=== PATIENT | female | born 1950 | race Caucasian/White ===

== ENCOUNTER 2021-02-11 09:37 | Emergency (ER) | payer MEDICARE, SELFPAY ==
[2021-02-11 09:45] VITALS: BP 166/72; PULSE 82; RESP 18; TEMP 36.1; O2SAT 96; BMI 29.6
--- NOTE | 2021-02-11 09:52 | DI.RAD.S_ITS ---
PROCEDURE: XR WRIST RT MIN 3V INDICATIONS: Lost balance. Caught fall with hand, swelling and pain TECHNIQUE: 4 views of the wrist were acquired. COMPARISON: None. FINDINGS: Bones: Transverse fracture of the distal radius, which appears to extend into the distal radioulnar and radiocarpal articulations. Sclerosis is seen about the margins of the fracture line. Widening of the scapholunate interval. Contour irregularity of the ulnar styloid, which may reflect acute on chronic injury or callus formation. No suspicious bony lesions. Scaphoid view: Intact. Soft tissues: Edema about the fracture site. No suspicious soft tissue calcifications. IMPRESSION: 1. Transverse fracture of the distal radius as detailed above. 2. Acute on chronic injury of the ulnar styloid versus callus formation. Dictated by: Lv Kwon M.D. on 02/11/2021 at 10:13 Approved by: Lv Kwon M.D. on 02/11/2021 at 10:18
--- NOTE | 2021-02-11 10:20 | ED.UPPEXIN ---
HPI - Extremity Injury (Upper) General Chief Complaint: Extremity Injury, Upper Stated Complaint: Fell and hurt Right wrist Time Seen by Provider: 02/11/21 10:03 Source: patient Mode of arrival: Ambulatory Limitations: no limitations and language barrier History of Present Illness HPI narrative: Patient is a 71-year-old female with history of hypertension hyperlipidemia arthritis presents right wrist pain and injury. She states that she is getting out the vehicle last night when she. No numbness or tingling. She has significant arthritis in her right MCPs. Related Data Previous Rx's Medication Instructions Recorded hydrocodone 5 mg-acetaminophen 325 1 tab PO Q6H PRN #10 tab 02/11/21 mg tablet Allergies Allergy/AdvReac Type Severity Reaction Status Date / Time Penicillins Allergy Mild Verified 02/11/21 09:49 Review of Systems Review of Systems Narrative: GENERAL: Denies chills,fever HEENT: Denies throat pain RESPIRATORY: Denies dyspnea, cough, wheezing CARDIOVASCULAR: Denies chest pain, palpitations GASTROINTESTINAL: Denies nausea, vomiting MUSCULOSKELETAL: See HPI SKIN: No rash, no laceration, no pruritus NEUROLOGIC: Denies weakness, dizziness, headache, numbness 8 point review of systems is negative except for those stated above and HPI Patient History Social History Smoking Status: Never smoker Smoking Status: Never smoker Substance Use Type: does not use Exam Initial Vital Signs Initial Vital Signs: Vital Signs Temperature 96.9 F L 02/11/21 09:45 Pulse Rate 82 02/11/21 09:45 Respiratory Rate 18 02/11/21 09:45 Blood Pressure 166/72 H 02/11/21 09:45 Pulse Oximetry 96 02/11/21 09:45 GENERAL: Alert well-appearing 71-year-old female CARDIOVASCULAR: peripheral pulses in tact, cap refill <2 sec RESPIRATORY: No respiratory distress, speaks in full sentences without difficulty EXTREMITIES: Normal range of motion, no clubbing or edema. Neurovascularly intact Right wrist swelling with mild contusion distal radial pulse intact. MCPs are flexed patient says that her hand is normally flexed, there is no actual hand swelling or hand pain. Cap refill less than 2 seconds NEUROLOGICAL: Cranial nerves II through XII grossly intact. Normal gait and speech. SKIN: Warm, dry, no petechiae, no rashes or lesions. Procedures Orthopedic Splinting/Casting Injury #1: Side: right Upper Extremity Injury Location: wrist Upper Extremity Immobilizer: sling/shoulder immobilizer and sugar tong splint Post splinting neuro exam: intact Post splinting vascular exam: intact Course Orders Ordered: ED Orders 02/11/21 09:52 XR wrist RT min 3V Stat Vital Signs Vital signs: Vital Signs - 8 hr 02/11/21 09:45 02/11/21 11:08 Temperature 96.9 F L Pulse Rate 82 80 Respiratory Rate 18 18 Blood Pressure 166/72 H 160/70 H Pulse Oximetry 96 97 MDM - Extremity Injury (Upper) Imaging Data Extremity x-ray #1: Radiologist's Impression: PROCEDURE:? XR WRIST RT MIN 3V ? INDICATIONS:? Lost balance. Caught fall with hand, swelling and pain ? TECHNIQUE:? 4 views of the wrist were acquired.? ? COMPARISON:? None. ? FINDINGS:? ? Bones:? Transverse fracture of the distal radius, which appears to extend into the distal radioulnar and radiocarpal articulations.? Sclerosis is seen about the margins of the fracture line.? Widening of the scapholunate interval.? Contour irregularity of the ulnar styloid, which may reflect acute on chronic injury or callus formation.? No suspicious bony lesions.? ? Scaphoid view:? Intact. ? Soft tissues:? Edema about the fracture site.? No suspicious soft tissue calcifications.? ? ? IMPRESSION:? ? 1. Transverse fracture of the distal radius as detailed above.? 2. Acute on chronic injury of the ulnar styloid versus callus formation.? ? Dictated by: Lv Kwon M.D. on 02/11/2021 at 10:13 ? ? Approved by: Lv Kwon M.D. on 02/11/2021 at 10:18 ? Discharge Plan Departure Patient Disposition: Home Clinical Impression: Distal radial fracture Qualifiers: Encounter type: initial encounter Fracture type: closed Laterality: right Instructions: DI for Wrist Fracture Activity Restrictions/Additional Instructions: *You have been diagnosed with distal radius fracture/wrist fracture *What to do: Keep arm in splint at all times. Use sling as needed. This may or may not require surgery. Please follow-up with orthopedic. Ice 20 minutes at a time if needed. Keep elevated as much as possible *Continue to take medications as directed [place] 1 tablet every 6 hours if needed pain *Follow up with your primary care provider in 2-3 days Call orthopedics today to schedule follow-up appointment in about 1 week *Return to ER if you should have increasing pain swelling weakness number smell or any new, worsening or concerning symptoms CONTROLLED SUBSTANCE DISCHARGE (Narcotoic/benzodiazepine/Flexeril/Phenergan) 1. You have been prescribed narcotic medications, it does have acetaminophen/Tylenol/paracetamol in it, DO NOT TAKE MORE THAN 4,00mg in 24 hours of Tylenol. TRAMADOL DOES NOT CONTAIN TYLENOL 2. Please understand that we cannot provide further refills of narcotics, benzodiazepines or controlled substances through the ED and her pain management will need to be through your provider. 3. While on these medications you cannot drive or operate heavy machinery. 4. You cannot sign legal documents or perform any duties such as this. 5. As long as you're taking opiate pain medications he should also be taking a stool softener such as Colace, Dulcolax, MiraLAX or prune juice, to help avoid constipation. Prescriptions: New hydrocodone-acetaminophen 5-325 mg tablet 1 tab PO Q6H PRN (Reason: pain) Qty: 10 RF: 0 Referrals: [facility] [Provider Group]
[2021-02-11 11:08] VITALS: BP 160/70; PULSE 80; RESP 18; O2SAT 97
== END 2021-02-11 11:08 | disposition home or self-care (01) ==
PROVIDERS: Emergency Provider Emergency Medicine
DX: S52.501A Unspecified fracture of the lower end of right radius, initial encounter for closed fracture (principal); W19.XXXA Unspecified fall, initial encounter
CPT/HCPCS: 29125; 73110; 99282; 99283

== ENCOUNTER → 2021-02-14 08:43 | Outpatient (CLI) | payer MEDICARE, SELFPAY ==
--- NOTE | 2021-02-14 | DI.CT.S_ITS ---
PROCEDURE: CT UE RT WO CON INDICATIONS: Other fractures of lower end of right radius, init TECHNIQUE: Noncontrast 1 mm axial sections acquired through the carpal bones, with coronal and sagittal reformats. COMPARISON: Reference is made to the right wrist radiographs dated February 11, 2021. FINDINGS: Image quality: Excellent. Bones: Comminuted fracture of the distal radius with extension to the radiocarpal and radioulnar articulations. Widening of the scapholunate interval. 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 Acute on chronic fracture of the ulnar styloid. Soft tissues: Soft tissue swelling about the fracture sites. IMPRESSION: 1. Comminuted fracture of the distal radius as detailed above. 2. Acute on chronic fracture of the ulnar styloid. Dictated by: Lv Kwon M.D. on 02/14/2021 at 10:01 Approved by: Lv Kwon M.D. on 02/14/2021 at 10:06
== END ==
PROVIDERS: Referring Provider Physician Assistant Medical; Visit Provider Physician Assistant Medical
DX: S52.591A Other fractures of lower end of right radius, initial encounter for closed fracture (principal); S52.611A Displaced fracture of right ulna styloid process, initial encounter for closed fracture
CPT/HCPCS: 73200

== ENCOUNTER → 2021-02-20 10:46 | Outpatient (CLI) | payer MEDICARE, SELFPAY ==
[2021-02-20 13:02] LABS: COVID19 -Nasal RAPID Negative (Negative)
== END ==
PROVIDERS: Visit Provider Nurse Practitioner
DX: Z20.822 Contact with and (suspected) exposure to COVID-19 (principal); Z01.812 Encounter for preprocedural laboratory examination
CPT/HCPCS: 87635; C9803

== ENCOUNTER 2021-02-22 11:00 | Day surgery (SDC) | payer MEDICARE, SELFPAY ==
[2021-02-22] VITALS (12 sets, daily range): BP systolic 135–192; BP diastolic 60–90; PULSE 64–82; RESP 11–18; TEMP 35.5–37.3; O2SAT 95–100; BMI 29.9
[2021-02-22] MEDS: LACTATED RINGERS 1,000 ML 42 ML IV ×2 (11:51→14:11)
[2021-02-22] MEDS: ACETAMINOPHEN 325 MG TABLET 975 MG PO (12:07)
--- NOTE | 2021-02-22 12:28 | PM.PREOP ---
Pre-operative Note COVID-19 COVID-19 status: Negative Interval Note History & Physical reviewed/Exam performed by Physician: Yes Changes to H&P: No
--- NOTE | 2021-02-22 12:30 | P.OP_ITS ---
Operative Date/Time/Diagnoses Date of procedure: 02/22/21 Time of procedure: 13:30 Pre-op diagnosis: right wrist fracture distal radius Post-op diagnosis: same Procedure & Clinicians Procedure: ORIF right distal radius fracture intra-articular multiple fragments Same procedure as scheduled: Yes Indications: This is a 71-year-old female fell on her outstretched right hand and sustained a comminuted right distal radius fracture. 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 Surgeon: Pascale Nunn Click Yes if Unassisted: Yes Anesthesia Type: General Operative Notes Findings: Comminuted fracture, stable reduction and internal fixation, adequate alignment Closure Type: primary Specimen(s): none sent Prosthetic devices, grafts, tissues, transplants, or devices: Hand innovision distal radius, DVR plate Estimated Blood Loss (mL): 150 Blood products transfused: none Procedure in detail: Patient was brought to the operating room. She was given IV antibiotics. A time-out was performed. Tourniquet was elevated to 250 mmHg. Patient was prepped and draped standard sterile fashion. Volar based longitudinal curvilinear radial skin incision was made. Dissection was carried out through skin and subcutaneous tissues. Dissection was carried out down to the FCR. The fascia overlying the FCR and the volar aspect of the FCR was incised. Muscle was gently stripped from the distal radius. Distal radius fracture was meticulously aligned. It was fixed with a volar base plate with specific attention directed at maintaining adequate volar tilt of the distal radius. Acceptable overall reduction and fixation was achieved. A mini C-arm was used to check the overall alignment of the fracture and the location of the plate and screws. Good quality fracture reduction and stable fixation was achieved. Hand was placed through range of motion and there was good tracking of the tendons and the fracture appeared stable. The wound was meticulously irrigated with normal saline. Marcaine was injected the wound was closed with interrupted Vicryl and interrupted nylon. Wound was dressed sterilely. Patient was placed in short-arm splint. Patient tolerated the procedure well. Complications none. Complications: none Post-operative Condition: stable Disposition: Acute Care Plan for aftercare: Transition to a removable splint in a week to 10 days. Suture removal at 10-14 days. Okay to do range of motion for the finger and elbow very gentle range of motion for the wrist. Follow-up x-rays in about 10 days.
[2021-02-22] MEDS: CEFAZOLIN 1 GM VIAL 2 GM IV (13:45)
--- NOTE | 2021-02-22 14:07 | SUR.OPER ---
Supine on padded OR bed, head on pillow, left arm secured on padded arm board at <90 degrees abduction, right arm prepped and draped in sterile field on hand table legs uncrossed, safety belt at thigh, tape over blanket over lower legs.
[2021-02-22] MEDS: BUPIVACAINE 0.5% (PF) VIAL 30 ML INJ (14:20)
[2021-02-22] MEDS: fentaNYL 100 MCG/2 ML INJ 50 MCG IV (15:49)
[2021-02-22] MEDS: OXYCODONE IR 5 MG TABLET PO ×2 (15:57→16:32)
--- NOTE | 2021-02-22 16:20 | SUR.PHASEI ---
Spoke with Dr Nunn in PACU. Second dose of oxycodone order received for pain of 5/10.
--- NOTE | 2021-02-22 16:25 | SUR.PHASEII ---
1549 Pt without oral pain meds. See order from Dr Nunn
--- NOTE | 2021-02-22 17:29 | SUR.PHASEII ---
cap refill good - fingers warm and pink.
== END 2021-02-22 17:20 | disposition home or self-care (01) ==
PROVIDERS: PCP Orthopaedic Surgery; Referring Provider Orthopaedic Surgery; Visit Provider Orthopaedic Surgery
PROC: (CPT 25609; principal; 2021-02-22 12:15)
DX: S52.571A Other intraarticular fracture of lower end of right radius, initial encounter for closed fracture (principal); W01.0XXA Fall on same level from slipping, tripping and stumbling without subsequent striking against object, initial encounter; I10 Essential (primary) hypertension; E78.5 Hyperlipidemia, unspecified; F32.9 Major depressive disorder, single episode, unspecified
CPT/HCPCS: 25609; J0690; J1100; J2250; J2405; J2704; J3010